=== PATIENT | female | born 1945 | race Caucasian/White ===

== ENCOUNTER → 2019-02-15 | Outpatient (CLI) | payer MEDICARE, BC ==
[~2019-02-15] MED LIST: ADULT LOW DOSE81 MG PO; AMBIEN 10 MG TA10 MG PO; ASPIRIN EC325 M1; ATIVAN0.5 MG PO; CHILDREN'S ASPI81 MG PO; DETROL LA4 MG PO; DETROL2 MG; EFFEXOR XR150 MG PO; EFFEXOR XR75 MG PO; HYDROCODON-ACE1 EAC7 PO; LIPITOR40 MG PO; LOPRESSOR25 PO; METOPROLOL TART25 MG PO; MOBIC7.5 M1; NITROSTAT0.4 MG SL; NORCO 10-325 T1 EACH PO; PAIN & FEVER325 MG PO; PLAVIX 75 MG TA75 M1 PO; PRILOSEC 20 MG20 MG PO; PRINIVIL10 MG PO; PRINIVIL20 MG; RANEXA500 MG PO; WELLBUTRIN SR150 MG PO; ZOLPIDEM TARTRA10 MG PO
--- NOTE | 2019-02-20 14:05 | TST ---
[place] [address] TREADMILL STRESS TEST Name: JOSE LUIS HUBBARD Room: [facility]#: [id number] Admission: 02/15/19 Attend Phys: April Jung MD Discharge: Date of : 49 Date of Service: 02/15/19 1617 Report #: [id number] THIS REPORT FOR: //name// CC: APRIL Rogergilles Eugeneion DATE OF SERVICE: 02/15/2019 EXERCISE STRESS TEST INDICATIONS: Exercise stress test was requested in this patient with a history of hypertension. RESULTS: The patient was exercised on a modified Vidal protocol from a pretest heart rate of 55 and blood pressure 146/72. The patient was able to exercise for 6 minutes on the modified Vidal protocol and achieved a peak heart rate of 111, which was less than 85% of maximum predicted heart rate for the patient's age. The peak blood pressure was 206/91. In recovery, the patient's heart rate 66 and blood pressure 158/89. The patient denied any chest discomfort with exercise, which was discontinued because of fatigue. The patient's resting ECG showed a sinus bradycardia, but there was no significant ST nor T-wave change noted at baseline. With exercise, there did appear to be a significant amount of baseline artifact on the ECG tracings. There were no arrhythmias noted. There appeared to be no significant ST nor T-wave change beyond baseline with exercise. IMPRESSION: 1. Poor exercise tolerance. 2. No chest pain with exercise. 3. No ischemic ST segment change noted with exercise. 4. Nondiagnostic exercise stress test for myocardial ischemia secondary to inability to achieve target heart rate. 5. This study was considered indeterminate for predicting future cardiac events secondary to inability to achieve target heart rate. 6. If clinically indicated, we will consider nuclear stress testing with pharmacologic stress to rule out ischemia. <ELECTRONICALLY SIGNED> By: Lucas Hein MD, FACC 02/20/19 1405 1617 [id number] Lucas Hein MD, FACC /nt
== END ==
LOC: M.CRD 14:12
DX: I25.10 Atherosclerotic heart disease of native coronary artery without angina pectoris (principal); I10 Essential (primary) hypertension

== ENCOUNTER 2020-08-31 22:31 | Inpatient (IN) | payer MEDICARE, BC ==
[~2020-08-31] VITALS: Ht 157.5 cm; Wt 74.4 kg
--- NOTE | ~2020-08-31 | PROC ---
[address] [address] PROCEDURE REPORT Name: JOSE LUIS HUBBARD Room: [address] ADM IN M.R.#: [id number] Admission: 09/01/20 Attend Phys: Cristina Yanes Discharge: Date of : 49 Report #: [id number] THIS REPORT FOR: cc: Eric Jung MD, Anthony MD [facility],Medical Records Staff ~ For GI report, please see the Provation report in Perceptive 7 content. By: [id number] Records Staff MATIAS /JASON
--- NOTE | ~2020-08-31 | CON ---
[facility] [address] [place] [address] CONSULTATION Name: JOSE LUIS HUBBARD Room: [address] ADM IN M.R.#: [id number] Admission: 09/01/20 Attend Phys: Cristina Yanes Discharge: Date of : 49 Report #: [id number] THIS REPORT FOR: cc: Eric Jung MD, Anthony MD Khosla,Sky Miller MD ~ DATE OF SERVICE: 09/01/2020 HISTORY OF PRESENT ILLNESS: This is a 75-year-old female patient who was evaluated by me for left-sided weakness. This patient has presented to the Emergency Room with a left-sided weakness. I talked to Emergency Room physician and this morning, I talked to the patient and the patient's son. This patient has presented with the left-sided weakness, which has resolved. She also had a stroke within a month and she was in [facility]. The records from there are not available, but CT scan done here showed a stroke, which has appeared since last time. The son tells me that the patient was left with right hemianopsia. The patient's symptoms have resolved this morning. REVIEW OF SYSTEMS: Indicate that Emergency Room physician talked to [facility] and looks like the patient had a right carotid stenosis at that time, but her stroke was in the left posterior cerebral artery distribution. CT angiogram done here was reviewed and that has same finding of the right carotid stenosis. We need to get the record from [facility]. She has a history of hysterectomy and DVT. She has a significant memory loss since her last stroke. She has word-finding difficulty. She has gone to assisted living, which she hates. She had perforation of the stomach at one time. She has a history of depression and anxiety. She has an overactive bladder. She does have a history of insomnia. This morning, she feels back to her baseline. She apparently is on a combination of aspirin and Plavix. REVIEW OF SYSTEMS: A 14-point review of system was otherwise noncontributory and she is not complaining of any eye, ENT, chest, respiratory, GI, musculoskeletal, constitutional, dermatological, hematological and allergic symptom associated with present symptomatology. PAST MEDICAL HISTORY: Positive for stroke. FAMILY HISTORY: Negative for early age stroke. SOCIAL HISTORY: Son is the durable power of senior trial attorney and I talked to the patient's son. PHYSICAL EXAMINATION: Indicates she is alert. She is responsive. She could tell me what month it is, could not tell me the date. [place] [address] CONSULTATION Name: JOSE LUIS HUBBARDNE Room: [address] IN M.R.#: [id number] Admission: 09/01/20 Attend Phys: Cristina Yanes Discharge: Date of : 49 Report #: [id number]. She was ultimately able to name Guera as the president, but was unable to tell who was before to him. Memory and fund of knowledge are affected. Cranial nerve examination 2-12 appeared to be showing a right hemianopsia. Today, she moved both sides symmetrical. Sensory system examination was difficult because she does not even understand the instructions because of her cognitive difficulties to something like position sense. Tone looks symmetrical. Reflexes are somewhat diminished. There is no meningeal sign. There is no carotid bruit. I could not look at the patient's fundus. She is moderately built individual. She does not have any dysmorphic features of eyes, ears and face. Her blood pressure is 145/55, respirations 17, pulse is 90 and temperature is 99.9. Cardiac examinations appear unremarkable. No respiratory difficulty or rhonchi was noticed. Pulses appeared to be palpable. LABORATORY DATA: White count is normal. GFR is normal. CTA was reviewed and it showed right carotid stenosis. IMPRESSION AND PLAN: This patient has multiple problems and those are summarized as below. 1. Right carotid stenosis. With an episode of left-sided weakness, right carotid artery should be considered symptomatic. It appeared to have occurred when the patient is on a combination of aspirin and Plavix. I will continue that and consult Vascular Surgery. 2. She also had multiple other strokes. She needs workup for that. She needs extensive monitoring to look for atrial fibrillation. 3. She does appear to be developing cognitive difficulty because of multiple infarcts. She resents assisted living. She is scheduled to have a neuropsychological testing on Monday. If she is dismissed by that time, she should keep that appointment. 4. She had an episode of dysphagia. That may be part of the pseudobulbar features secondary to bilateral strokes she has, but local pathology needs to be excluded. GI has been consulted and we will see what they say. Otherwise, she may need a video swallow, but Speech Therapy is already consulted and we will see what they would like to do. Thank you very much for this referral and we will follow the patient along with you. By: 1113 [id number] Vyas MD /nt
[~2020-08-31 22:31] MED LIST changes: -LOPRESSOR25 PO
[2020-08-31 22:32] VITALS: BP 148/77
[2020-08-31] MEDS ORDERED: PLAVIX 75 MG TA75 MG PO (23:00)
[2020-08-31] MEDS ORDERED: VITAMIN D325 MC3 PO (23:01)
[2020-08-31] MEDS ORDERED: MELATONIN3 M1 PO (23:01)
[2020-08-31] MEDS ORDERED: VITAMIN B122500 MC1 PO (23:01)
[2020-08-31 23:21] LABS: ABSOLUTE EOSINOPHILS 0.2 thou/uL (0.0-0.7); ABSOLUTE LYMPHOCYTES 2.3 thou/uL (0.8-5.3); ABSOLUTE MONOCYTES 0.6 thou/uL (0.0-1.2); ABSOLUTE NEUTROPHILS 2.3 thou/uL (1.6-8.1); BASOPHILS 0.5 %; EOSINOPHILS 3.7 %; HEMATOCRIT 33.9 % (37.0-47.0); LYMPHOCYTES 42.5 %; MCH 30.2 pg (26.0-34.0); MCHC 32.5 g/dL (28.0-37.0); MONOCYTES 10.9 %; MPV 8.7 fl. (7.2-11.1); NUCLEATED RBCS 0 /100WBC; PLATELET COUNT* 227 thou/uL (150-400); POLYS 42.4 %; RBC 3.64 mil/uL (4.20-5.00); RDW-CV 13.9 % (10.5-14.5); WBC 5.5 thou/uL (4.0-11.0)
[2020-08-31 23:28] LABS: PROTIME 10.3 Seconds (9.20-11.50)
[2020-08-31 23:41] LABS: CALCIUM 8.9 mg/dL (8.5-10.1)
[2020-08-31 23:52] LABS: ALBUMIN 3.3 g/dL (3.4-5.0); MAGNESIUM 1.8 mg/dL (1.8-2.4); TOTAL BILIRUBIN 0.3 mg/dL (<0.1-1.0); TOTAL PROTEIN 6.8 g/dL (6.4-8.2)
[2020-09-01] VITALS (7 sets, daily range): BP systolic 115–145; BP diastolic 55–79
[2020-09-01 00:30] LABS: URINE BILIRUBIN NEGATIVE (Negative); URINE BLOOD NEGATIVE (Negative); URINE CLARITY CLEAR; URINE COLOR YELLOW; URINE GLUCOSE-RANDOM NEGATIVE (Negative); URINE KETONES NEGATIVE (Negative); URINE LEUKOCYTES-REFLEX NEGATIVE (Negative); URINE NITRITE-REFLEX NEGATIVE (Negative); URINE PROTEIN NEGATIVE (Negative); URINE SPECIFIC GRAVITY 1.015 (1.005-1.030); URINE UROBILINOGEN 0.2 E.U./dl (0.2-1.0)
--- NOTE | 2020-09-01 09:39 | EKG ---
[place] [address] ELECTROCARDIOGRAM REPORT Name: JOSE LUIS HUBBARD Room: [address] M.R.#: [id number] Admission: 09/01/20 Attend Phys: China Petty Discharge: Date of : 49 Date of Service: 08/31/202235 Report #: [id number] THIS REPORT FOR: //name// [facility] ED Test Date: 2020-08-31 Test Time: 22:36:36 Pat Name: JOSE LUIS HUBBARD Department: Room: [facility] Gender: F [employer]k Plant Supervisor: MARIA T : 1945 Requested By: Chantale Bland Order Number: [id number] MD: Lucas Hein Measurements Intervals [place] Rate: 63 P: 49 VT: 180 QRS: -6 QRSD: 109 T: 38 QT: 466 QTc: 478 Interpretive Statements Sinus rhythm supraVentricular premature complex Low voltage, precordial leads Borderline T abnormalities, anterior leads Compared to ECG 05/08/2014 14:20:21 supraVentricular premature complex(es) now present Low QRS voltage now present T-wave abnormality still present Electronically Signed On 09-01-2020 9:39:48 CDT by Lucas Hein [email or web address] <ELECTRONICALLY SIGNED> By: Lucas Hein MD, [facility] 09/01/20 0939 35 35 Lucas Hein MD, [facility] /EPI
[2020-09-02] VITALS: BP 151/80
[2020-09-02 04:00] VITALS: BP 151/72
[2020-09-02 06:18] LABS: HEMATOCRIT 33.1 % (37.0-47.0); HEMOGLOBIN 10.7 gm/dL (12.0-15.0); MCH 30.2 pg (26.0-34.0); MCHC 32.4 g/dL (28.0-37.0); MPV 9.4 fl. (7.2-11.1); RBC 3.56 mil/uL (4.20-5.00); RDW-CV 13.8 % (10.5-14.5); WBC 5.1 thou/uL (4.0-11.0)
[2020-09-02 06:27] LABS: CREATININE 0.9 mg/dL (0.6-1.3); POTASSIUM 3.8 mmol/L (3.5-5.1)
[2020-09-02 07:40] VITALS: BP 116/69
[2020-09-02 08:00] VITALS: BP 116/69
[2020-09-02 21:00] VITALS: BP 144/84
[2020-09-03] VITALS (7 sets, daily range): BP systolic 101–146; BP diastolic 49–90
[2020-09-03 04:31] LABS: HEMATOCRIT 32.8 % (37.0-47.0); HEMOGLOBIN 10.7 gm/dL (12.0-15.0); MCH 30.4 pg (26.0-34.0); MCHC 32.5 g/dL (28.0-37.0); MCV 93.4 fL (80.0-100.0); MPV 8.8 fl. (7.2-11.1); RBC 3.52 mil/uL (4.20-5.00); RDW-CV 13.9 % (10.5-14.5); WBC 5.7 thou/uL (4.0-11.0)
[2020-09-03 04:40] LABS: CHOLESTEROL 133 mg/dL (<200); HDL CHOLESTEROL 47 mg/dL (>40); LDL CHOLESTEROL 60 mg/dL (<100); TC:HDL 2.8 Ratio (Not establshd); TRIGLYCERIDE 132 mg/dL (<150); VLDL 26 mg/dL (<40)
[2020-09-03 04:46] LABS: CALCIUM 9.4 mg/dL (8.5-10.1); CREATININE 0.9 mg/dL (0.6-1.3); POTASSIUM 3.8 mmol/L (3.5-5.1)
[2020-09-03 04:52] LABS: SERUM ASSESSMENT CLEAR
[2020-09-04 00:06] VITALS: BP 134/68
[2020-09-04 04:00] VITALS: BP 115/64
[2020-09-04 07:59] VITALS: BP 149/75
[2020-09-04 15:44] VITALS: BP 141/55
[2020-09-04 20:10] VITALS: BP 170/79
[2020-09-05 08:06] VITALS: BP 151/87
[2020-09-05 16:47] VITALS: BP 136/83
[2020-09-06 08:34] VITALS: BP 148/87
[2020-09-06 16:13] VITALS: BP 101/65
[2020-09-06 20:15] VITALS: BP 112/65
[2020-09-07 08:30] VITALS: BP 139/86
[2020-09-07 16:41] VITALS: BP 130/79
[2020-09-08 05:15] LABS: HEMATOCRIT 33.9 % (37.0-47.0); HEMOGLOBIN 10.9 gm/dL (12.0-15.0); MCH 30.1 pg (26.0-34.0); MCHC 32.1 g/dL (28.0-37.0); MCV 93.8 fL (80.0-100.0); MPV 8.9 fl. (7.2-11.1); RBC 3.61 mil/uL (4.20-5.00); WBC 5.6 thou/uL (4.0-11.0)
[2020-09-08 05:31] LABS: ALBUMIN 3.1 g/dL (3.4-5.0); CREATININE 0.9 mg/dL (0.6-1.3); MAGNESIUM 1.9 mg/dL (1.8-2.4); POTASSIUM 3.8 mmol/L (3.5-5.1); TOTAL BILIRUBIN 0.3 mg/dL (<0.1-1.0); TOTAL PROTEIN 6.8 g/dL (6.4-8.2)
[2020-09-08 08:15] VITALS: BP 127/84
[2020-09-08 09:31] VITALS: BP 127/84
[2020-09-10] MEDS ORDERED: VOLTAREN GEL 1100 G1 TOP (12:39)
== END 2020-09-08 14:41 | disposition short-term general hospital (02) | DRG 64 ==
LOC: M.ERS 22:31 → M.TBA-ER 09-01 00:43 → M.2W 09-01 02:34 → M.ORTHSURG 09-01 14:38 → M.2W 09-01 14:38 → M.ORTHSURG 09-02 13:09
PROVIDERS: Emergency Medicine; Family Medicine; Internal Medicine; ADMIT Internal Medicine; ATTEND Internal Medicine
PROC: 0D718ZZ Dilation of Upper Esophagus, Via Natural or Artificial Opening Endoscopic (ICD-10-PCS; principal; 2020-09-02)
DX: I63.89 Other cerebral infarction (principal); G93.41 Metabolic encephalopathy; I65.21 Occlusion and stenosis of right carotid artery; F32.9 Major depressive disorder, single episode, unspecified; E78.5 Hyperlipidemia, unspecified; E78.00 Pure hypercholesterolemia, unspecified; I10 Essential (primary) hypertension; F41.9 Anxiety disorder, unspecified; G47.00 Insomnia, unspecified; R13.10 Dysphagia, unspecified; K21.00 Gastro-esophageal reflux disease with esophagitis, without bleeding; K44.9 Diaphragmatic hernia without obstruction or gangrene; K22.2 Esophageal obstruction; Z20.822 Contact with and (suspected) exposure to COVID-19; Z79.82 Long term (current) use of aspirin; Z79.899 Other long term (current) drug therapy; Z86.718 Personal history of other venous thrombosis and embolism; Z95.5 Presence of coronary angioplasty implant and graft; Z88.8 Allergy status to other drugs, medicaments and biological substances; Z86.73 Personal history of transient ischemic attack (TIA), and cerebral infarction without residual deficits; Z90.710 Acquired absence of both cervix and uterus